=== PATIENT | female | born 1945 | race Caucasian/White ===

== ENCOUNTER 2023-05-03 10:23 | Emergency (ER) | payer MEDICARE, SELFPAY ==
[2023-05-03] VITALS (7 sets, daily range): BP systolic 140–168; BP diastolic 46–73; PULSE 69–85; RESP 18–20; TEMP 36.5–36.7; O2SAT 96–99; BMI 25.9
--- NOTE | 2023-05-03 10:39 | CT_ITS ---
PROCEDURE INFORMATION: Exam: CT Head Without Contrast Exam date and time: 05/03/2023 10:53 AM Age: 77 years old Clinical indication: Syncope and collapse; Additional info: Found down TECHNIQUE: Imaging protocol: Computed tomography of the head without contrast. Radiation optimization: All CT scans at this facility use at least one of these dose optimization techniques: automated exposure control; mA and/or kV adjustment per patient size (includes targeted exams where dose is matched to clinical indication); or iterative reconstruction. COMPARISON: No relevant prior studies available. FINDINGS: Brain: There is age related atrophy. No hemorrhage. There is mild periventricular white matter hypodensity consistent with chronic small vessel disease. No mass effect. Cerebral ventricles: Ventricular enlargement secondary to parenchymal atrophy. Paranasal sinuses: Visualized sinuses are unremarkable. No fluid levels. Mastoid air cells: Visualized mastoid air cells are well aerated. Orbital cavities: The orbital contents are symmetric and normal. Bones/joints: Unremarkable. No acute fracture. Soft tissues: Unremarkable. IMPRESSION: No acute intracranial abnormality.
--- NOTE | 2023-05-03 10:44 | XR_ITS ---
FINAL REPORT CLINICAL HISTORY: fall, pain ams FINDINGS: SINGLE VIEW PELVIS: A single view of the pelvis was obtained. There is no acute fracture or dislocation. Vizualized joint spaces are normally aligned. There are mild degenerative changes of the lower lumbar spine and hips. There is a safety pin over the right abdomen, presumably external to the patient. IMPRESSION: No acute bony abnormality. Reviewed, Interpreted and Dictated by Silvio Olson III, MD Transcribed by Debbi Jarvis Authenticated and [facility]
--- NOTE | 2023-05-03 10:44 | PC.NURSE ---
Pt provided with warm blanket
--- NOTE | 2023-05-03 10:45 | HMH.EDGENADL ---
Discharge Plan Disposition Patient Disposition: Home, Self-Care Condition: Fair Prescriptions Prescriptions: New cefadroxil 500 mg capsule 500 mg PO BID 7 Days Qty: 14 0RF No Action amlodipine 10 mg tablet 10 mg PO DAILY Patient Comments: TAKE 1 TABLET BY MOUTH ONCE DAILY pravastatin 20 mg tablet 20 mg PO HS donepezil 10 mg tablet 10 mg PO DAILY Patient Comments: TAKE 1 TABLET BY MOUTH ONCE DAILY Systane Balance 0.6 % drops 1 drp ophthalmic (eye) DAILY doxepin 6 mg tablet 6 mg PO HS Qty: 30 0RF Hold Instructions: Doctor's Order zolpidem 5 mg tablet 5 mg PO HS Qty: 60 0RF olanzapine 10 mg tablet 10 mg PO HS Qty: 30 1RF Referrals Follow up/Referrals: Arjun Minor MD [Primary Care Provider] - See instructions Activity Restrictions/Add. Instructions Additional Instructions/Restrictions: You have been evaluated in the ED for your complaints. You may follow-up with your PCP in the next 3 to 5 days. Please return to ED for any new or worsening symptoms. I have written for prescription for cefadroxil to treat your urinary tract infection. Please take this as prescribed. Please drink plenty of fluids over the next several days. Clinical Impressions Clinical Impression: UTI (urinary tract infection), Elevated CK, Fall Instructions Patient Instructions: Urinary Tract Infection Discharge ED Provider: Logan Black General Adult HPI General Chief complaint: Altered Mental Status Stated complaint: incontinant confused Time Seen by Provider: 05/03/23 10:31 History of Present Illness HPI narrative: 77-year-old female with past medical history significant for dementia, hyperlipidemia, hypertension, DM 2, presents today with son after being found down in her closet soiled in urine. Son reports that he last saw patient around 10:30 PM last night when he assisted with getting into bed. Found around 7:30 AM banging on the wall in her closet. Patient does not recall falling in her closet. She denies any chest pain, abdominal pain, shortness of breath, neck pain, back pain, extremity pain at this time. Son does voice concerns for possible UTI. No further complaints. Related Data Home Medications Medication Instructions Recorded Confirmed amlodipine 10 mg tablet 10 mg PO DAILY HTN 03/28/23 05/03/23 donepezil 10 mg tablet 10 mg PO DAILY memory 03/28/23 05/03/23 pravastatin 20 mg tablet 20 mg PO HS HLD 03/28/23 05/03/23 propylene glycol 0.6 % eye drops 1 drp ophthalmic (eye) DAILY 03/28/23 05/03/23 (Systane Balance) Previous Rx's Medication Instructions Recorded doxepin 6 mg tablet 6 mg PO HS sleep #30 tabs 04/04/23 zolpidem 5 mg tablet 5 mg PO HS #60 tabs 04/29/23 olanzapine 10 mg tablet 10 mg PO HS sleep #30 tabs 05/02/23 cefadroxil 500 mg capsule 500 mg PO BID 7 days #14 caps 05/03/23 Allergies Allergy/AdvReac Type Severity Reaction Status Date / Time No Known Allergies Allergy Verified 03/28/23 11:18 [facility] Disclaimer: The information contained in this section may have been updated after the patient was seen, as this information can be updated by other users. Surgical History Brain tumor Family History (Updated 03/28/23 @ 11:25 by Evelin Ray LPN) Father Cancer Mother Dementia Social History (Updated 03/28/23 @ 11:25 by Evelin Ray LPN) Smoking Status: Never smoker alcohol intake: never substance use type: denies use current occupational status: retired Travel in the last 8 weeks: Inside the [place] household members: family housing: house ROS Obtained: Yes All systems reviewed & no additional complaints except as documented Physical Exam General General appearance: alert and in no apparent distress Head Head exam: atraumatic and normocephalic Eye Eye exam: Present normal appearance, PERRL and EOMI ENT ENT exam: Present normal oropharynx and mucous membranes moist Neck Neck exam: Present full ROM; Absent meningismus Respiratory Respiratory exam: Absent respiratory distress, wheezes, stridor or accessory muscle use Cardiovascular Cardiovascular exam: Present normal rhythm Abdominal Exam Abdominal exam: Present soft; Absent distention, tenderness, guarding, rebound or rigidity Neurological Exam Neurological exam: Present alert and CN II-XII intact; Absent oriented X3 (Patient is alert and oriented to person but not place and time. She does follow commands without difficulty. No speech difficulty. Neurological exam otherwise nonfocal.) or motor sensory deficit Psychiatric Psychiatric exam: Present normal affect and normal mood Skin Skin exam: Present warm and dry Medical Decision Making Medical Records Medical records reviewed: Yes I reviewed the patient's medical records. Chris Inquiry Pt receiving controlled substance: No Chris was queried for this patient: No Vital Signs: 05/03/23 10:37 05/03/23 11:38 05/03/23 12:01 Temperature 98.1 F Temperature Source Oral Pulse Rate 69 74 Pulse Rate [Right Brachial] 72 Respiratory Rate 18 Blood Pressure 140/46 L 141/73 H Blood Pressure [Right Arm] 163/56 H Blood Pressure Mean [Right Arm] 91 Blood Pressure Source [Right Arm] Automatic Cuff Blood Pressure Position [Right Arm] Sitting 02 Sat by Pulse Oximetry 99 98 96 Oxygen Delivery Method Room Air Room Air Room Air 05/03/23 13:01 05/03/23 14:00 05/03/23 15:01 Temperature Temperature Source Pulse Rate 76 85 79 Pulse Rate [Right Brachial] Respiratory Rate Blood Pressure 168/68 H 162/69 H 165/61 H Blood Pressure [Right Arm] Blood Pressure Mean [Right Arm] Blood Pressure Source [Right Arm] Blood Pressure Position [Right Arm] 02 Sat by Pulse Oximetry 97 98 98 Oxygen Delivery Method Room Air Room Air Room Air Lab Data Lab Results 05/03/23 10:55: WBC 9.9, RBC 4.68, Hgb 13.3, Hct 40.5, MCV 86.6, MCH 28.5, MCHC 32.9, RDW 14.0, Plt Count 255, MPV 8.2, Neut % (Auto) 79.0, Lymph % (Auto) 14.5, [place] % (Auto) 3.6, Eos % (Auto) 2.4, Baso % (Auto) 0.4, Neut # (Auto) 7.9 H, Lymph # (Auto) 1.4, [place] # (Auto) 0.4, Eos # (Auto) 0.2, Baso # (Auto) 0.0, Sodium 141, Potassium 4.1, Chloride 107, Carbon Dioxide 28, Anion Gap 10.1, BUN 20 H, Creatinine 1.00, Estimated Creat Clear 56, Estimated GFR 54 L, Est GFR ( Amer) 65, Glucose 137 H, Calcium 9.1, Total Bilirubin 0.9, AST 116 H, ALT 44, Alkaline Phosphatase 85, Total Creatine Kinase 2560 H*, Total Protein 7.8, Albumin 4.3, Globulin 3.5 H, Albumin/Globulin Ratio 1.2 05/03/23 11:36: Urine Color Yellow, Urine Appearance Sl cloudy, Urine pH 6.0, Ur Specific [place] 1.020, Urine Protein 1+, Urine Glucose (UA) Negative, Urine Ketones Negative, Urine Blood 3+, Urine Nitrate Positive, Urine Bilirubin Negative, Urine Urobilinogen 0.2, Ur Leukocyte Esterase 1+ A, Urine RBC None, Urine WBC 50-100, Ur Squamous Epith Cells 3-5, Urine Bacteria 4+ 05/03/23 12:06: PT 10.6, INR 0.98 05/03/23 10:55 05/03/23 10:55 Orders (Tests/Meds): ED MEDICATIONS Discontinued Medications Generic Name Dose Route Start Last Admin Trade Name Freq PRN Reason Stop Dose Admin Lactated Ringer's 1,000 mls @ 999 mls/hr 05/03/23 12:02 05/03/23 12:11 Lactated Ringer's 1000 Ml Bag IV 05/03/23 13:02 999 mls/hr .Q1H1M ONE Administration ORDERS Category Date Time Status CT head/brain wo con Stat Cat Scan 05/03/23 10:39 Taken XR pelvis 1-2V Stat Exams 05/03/23 10:44 Taken Complete Blood Count Auto Diff Stat Lab 05/03/23 10:55 Completed Comprehensive Metabolic Panel Stat Lab 05/03/23 10:55 Completed Creatine Kinase Stat Lab 05/03/23 10:55 Completed Prothrombin Time INR Stat Lab 05/03/23 12:06 Completed Urinalysis and Microscopic Stat Lab 05/03/23 11:36 Completed Urine Culture Stat Micro 05/03/23 11:36 Received Medical Decision Narrative: 77-year-old female with past medical history significant for dementia, hyperlipidemia, hypertension, DM 2, presents today with son after being found down in her closet soiled in urine. Son reports that he last saw patient around 10:30 PM last night when he assisted with getting into bed. Found around 7:30 AM banging on the wall in her closet. Patient does not recall falling in her closet. On assessment, she was medically stable and in no acute distress. Afebrile. Neurological exam was nonfocal. She did not have any midline tenderness palpation of the C/T/L-spine. There was no extremity tenderness. Chest clear to station bilaterally. There is no chest wall tenderness to palpation. The abdomen was soft nondistended nontender. Hips appeared to be nontender bilaterally. Otherwise exam findings unremarkable. Differential diagnoses include but limited to UTI, intracranial bleed, orthostasis, electrolyte disturbance, among others. I did have discussion with patient's daughter at bedside and she stated that patient has had a recent medication change with increase of her olanzapine to 10 mg on this past Saturday. She is also taking Ambien at 5 mg. CBC today has been nonactionable. PT/INR 10.6/0.98. CMP with AST of 116. CK of 2560. Urinalysis with positive nitrites, 1+ leukocyte esterase, 4+ bacteria, 50-100 WBCs, consistent with UTI. Patient did receive a fluid bolus of LR while in the ED to assist with decreasing her CK. I did personally review patient's CT head imaging and did not show any acute bleeds on my interpretation. Radiology report confirms no acute intracranial abnormalities. On reassessment patient aguila medically stable and in no distress. Discussed ED workup and results with patient's family as well as current plan to discharge home with cefadroxil to treat her urinary tract infection. They verbalized understanding and agreement with plan. Provided with strict return precautions and instructions concerning PCP follow-up. Subsequently discharged home HD stable and in no acute distress. Critical Care Critical Care Time Critical Care Time: No
--- NOTE | 2023-05-03 11:00 | PC.NURSE ---
Pt gone to RAD via stretcher
[2023-05-03 11:03] LABS: Basophils % 0.4 % (0.1-2.0); Eosinophils # 0.2 K/mm3 (0.0-0.4); Eosinophils % 2.4 % (0.1-12.0); Hematocrit 40.5 % (37.0-47.0); Hemoglobin 13.3 g/dL (12.2-16.2); Lymphocytes # 1.4 K/mm3 (0.7-4.5); Lymphocytes % 14.5 % (10-50); Mean Corpuscular HGB Conc 32.9 g/dL (31.8-35.4); Mean Corpuscular Hemoglobin 28.5 pg (27.0-31.2); Mean Corpuscular Volume 86.6 fl (81-99); Mean Platelet Volume 8.2 fl (7.4-10.4); Monocytes # 0.4 K/mm3 (0.1-1.0); Monocytes % 3.6 % (1.7-9.3); Neutrophils # 7.9 K/mm3 (1.8-7.8); Platelet Count 255 K/mm3 (142-424); Red Blood Count 4.68 M/mm3 (4.20-5.40); White Blood Count 9.9 K/mm3 (4.8-10.8)
[2023-05-03 11:10] LABS: Chloride 107 mmol/L (98-107)
[2023-05-03 11:11] LABS: Potassium 4.1 mmoL/L (3.5-5.1); Sodium 141 mmol/L (136-145)
[2023-05-03 11:13] LABS: Alanine Aminotransferase 44 U/L (12-78); Aspartate Amino Transferase 116 U/L (14-36); Blood Urea Nitrogen 20 mg/dl (7-17); Creatinine Clearance Estimated 56 mL/min (50-200); Estimated Glomerular Filt Rate 54 ml/min (>60); GFR (African American) 65 ML/MIN (>60)
[2023-05-03 11:14] LABS: Albumin Level 4.3 g/dl (3.5-5.0); Albumin/Globulin Ratio 1.2 (1.1-1.8); Alkaline Phosphatase 85 U/L (38-126); Anion Gap 10.1 mEq/L (5-15); Bilirubin,Total 0.9 mg/dl (0.2-1.3); Calcium 9.1 mg/dl (8.4-10.2); Carbon Dioxide 28 mmol/L (22.0-30.0); Globulin 3.5 g/dL (1.3-3.2); Glucose 137 mg/dl (74-100); Total Protein,Serum 7.8 g/dl (6.3-8.2)
[2023-05-03 11:21] LABS: Creatine Kinase 2560 U/L (30-135)
--- NOTE | 2023-05-03 11:26 | PC.NURSE ---
PT RETURNED FROM CT
--- NOTE | 2023-05-03 11:33 | PC.NURSE ---
Dr. Black notified of CK of 8870.
[2023-05-03 11:40] LABS: Microscopic, Urine URINE MICROSCOPIC (MICROSCOPIC)
[2023-05-03 11:49] LABS: Appearance,Urine SL CLOUDY (Clear); Bilirubin,Urine Negative (Negative); Blood, Urine 3+ (Negative); Color,Urine YELLOW (Yellow); Glucose,Urine (UA) Negative (Negative); Ketones,Urine Negative (Negative); Leukocyte Esterase,Urine 1+ (Negative); Nitrate,Urine POSITIVE (Negative); Protein,Urine 1+ (Negative); Urobilinogen,Urine 0.2 EU/dl (0.2)
[2023-05-03] MEDS: LACTATED RINGERS 1000ML 1,000 ML 999 ML IV (12:11)
[2023-05-03 12:23] LABS: INR 0.98 (0.9-1.1); Prothrombin Time 10.6 seconds (10.1-12.5)
[2023-05-03 12:25] LABS: Bacteria,Urine 4+ /lpf; WBC,Urine 50-100 #/hpf (0-3)
--- NOTE | 2023-05-03 13:54 | PC.NURSE ---
DR LOPES AT BEDSIDE TO UPDATE FAMILY
--- NOTE | 2023-05-03 14:10 | PC.NURSE ---
Rounded on pt. Son said she was starting to become agitated . RN and Dr. Black aware.
--- NOTE | 2023-05-08 06:58 | PC.NURSE ---
urine cx reported to daisy. no changes at this time pending sensitivity
--- NOTE | 2023-05-08 13:37 | PC.NURSE ---
URINE CULTURE RESULTS DISCUSSED WITH DR MARIANNE PT ON APPROPRIATE ABX. NO CHANGES NEEDED
== END 2023-05-03 15:10 | disposition home or self-care (01) ==
PROVIDERS: Emergency Provider Emergency Medicine; PCP Family Medicine
DX: R41.82 Altered mental status, unspecified (principal); N39.0 Urinary tract infection, site not specified; F03.90 Unspecified dementia, unspecified severity, without behavioral disturbance, psychotic disturbance, mood disturbance, and anxiety; E78.5 Hyperlipidemia, unspecified; I10 Essential (primary) hypertension; E11.9 Type 2 diabetes mellitus without complications; W19.XXXA Unspecified fall, initial encounter
CPT/HCPCS: 70450; 72170; 80053; 81001; 82550; 85025; 85610; 87086; 96360; 99285